=== PATIENT | male | born 1965 | race Caucasian/White ===

== ENCOUNTER 2018-10-18 06:32 | Day surgery (SDC) | payer OTHER ==
[2018-10-18] MEDS ORDERED: Propofol 200 MG/20 ML SDV IV ONE (06:33)
[2018-10-18] MEDS ORDERED: Midazolam 1 MG/ML 2 ML SDV IV ONE (06:33)
[2018-10-18] MEDS ORDERED: Lactated Ringers 1,000 ML IV SCH (06:45)
--- NOTE | 2018-10-18 08:17 | PCM.OPNOTE ---
- General Post-Op/Procedure Note Date of Surgery/Procedure: 10/18/18 Operative Procedure(s): c scope with biopsy Findings: ascending and sigmoid colon polyp Pre Op Diagnosis: screening Post-Op Diagnosis: ascending and sigmoid colon polyp Anesthesia Technique: MAC Primary Surgeon: Trenton Ward Anesthesia Provider: Ales[facility] Pathology: ascending and sigmoid colon polyp Condition: Good Free Text/Narrative:: see dictation
--- NOTE | 2018-10-18 09:11 | OR ---
DATE OF OPERATION: 10/18/2018 SURGEON: Trenton Ward MD PROCEDURE PERFORMED: Colonoscopy with cold forceps biopsy. PREOPERATIVE DIAGNOSIS: Need for screening C-scope. POSTOPERATIVE DIAGNOSIS: Colon polyps x2. INDICATIONS FOR PROCEDURE: This is a 52-year-old white male, who presents for screening colonoscopy. He was offered and accepted same. DESCRIPTION OF OPERATION: After an excellent IV sedation was administered, digital rectal exam was performed. No marked abnormality was noted. The flexible colonoscope was inserted and advanced to the cecum. Prep was excellent. The following findings were noted. Ascending colon, at the distal ascending colon, a small polyp biopsied with cold biopsy forceps and sent for permanent. Transverse colon was unremarkable. Descending colon was unremarkable. Distal sigmoid demonstrated a small pedunculated polyp, biopsied with cold biopsy forceps, sent for permanent. Rectum unremarkable. Photos were taken of both polyps. The patient tolerated the procedure well and was taken to recovery. Results by letter. /[id number] ERNESTO/MARIXA
== END 2018-10-18 08:55 | disposition home or self-care (01) ==
LOC: FB.SDS 06:32
PROVIDERS: ATTEND Surgery
DX: Z12.11 Encounter for screening for malignant neoplasm of colon (principal); D12.2 Benign neoplasm of ascending colon; K63.5 Polyp of colon; K21.9 Gastro-esophageal reflux disease without esophagitis; I10 Essential (primary) hypertension; E11.9 Type 2 diabetes mellitus without complications; E78.00 Pure hypercholesterolemia, unspecified; G47.33 Obstructive sleep apnea (adult) (pediatric); Z87.891 Personal history of nicotine dependence; Z83.71 Family history of colonic polyps; Z79.84 Long term (current) use of oral hypoglycemic drugs; Z79.82 Long term (current) use of aspirin; Z79.899 Other long term (current) drug therapy
CPT/HCPCS: 82962; 88305; J2250; J2704; J7120